=== PATIENT | male | born 1975 | race Caucasian/White ===

== ENCOUNTER 2017-12-22 13:03 | Emergency (ER) | payer BC ==
--- NOTE | 2017-12-22 13:51 | EDPHYS ---
Physician Documentation [facility] Name: Dov Roberson Age: 42 yrs Sex: Male : 1975 Arrival Date: 12/22/2017 Time: 13:03 Bed 24 Private MD: ED Physician Keo Ramsey HPI: 12/22 13:46 This 42 yrs old Male presents to ER via Ambulatory with complaints of Knee gs Pain. 13:46 The patient presents with an injury. The complaints affect the right knee. Context: The gs problem was sustained at home, resulted from HYPERFLEXION RIGHT KNEE SITTING AND GETTING OUT OF BED. Onset: The symptoms/episode began/occurred 2 day(s) ago, and became worse and became persistent. Modifying factors: the symptoms are aggravated by movement, bending knee. Associated signs and symptoms: Pertinent positives: swelling, Pertinent negatives fever, numbness, weakness. Severity of symptoms: At their worst the symptoms were moderate, in the emergency department the symptoms are unchanged. The patient has experienced similar episodes in the past, a few times. Historical: - Allergies: 13:17 No Known Allergies; lk1 - PMHx: 13:17 None; lk1 - PSHx: 13:17 left wrist; right shoulder; Appendectomy; right knee (ACL); lk1 - Immunization history:: Adult Immunizations up to date. - Social history:: Smoking status: Patient/guardian denies using tobacco. - Ebola Screening: : No symptoms or risks identified at this time. ROS: 13:46 All other systems are negative. gs Exam: 13:46 ENT: Nares patent. No nasal discharge, no septal abnormalities noted. Tympanic gs membranes are normal and external auditory canals are clear. Oropharynx with no redness, swelling, or masses, exudates, or evidence of obstruction, uvula midline. Mucous membranes moist. Cardiovascular: Regular rate and rhythm with a normal S1 and S2. No gallops, murmurs, or rubs. Normal PMI, no JVD. No pulse deficits. Respiratory: Lungs have equal breath sounds bilaterally, clear to auscultation and percussion. No rales, rhonchi or wheezes noted. No increased work of breathing, no retractions or nasal flaring. Back: No spinal tenderness. No costovertebral tenderness. Full range of motion. Skin: Warm, dry with normal turgor. Normal color with no rashes, no lesions, and no evidence of cellulitis. 13:46 Constitutional: The patient appears alert, awake. 13:46 Musculoskeletal/extremity: ROM: limited active range of motion due to pain, limited passive range of motion due to pain, Pulses: are normal with no appreciated deficits, Sensation intact. Joints: the right knee displays effusion, painful range of motion, swelling, tenderness. Vital Signs: 13:17 BP 125 / 92; Pulse 83; Resp 16; Temp 97.5(TE); Pulse Ox 98% on R/A; Weight 117.93 kg lk1 (R); Height 6 ft. 3 in. (190.50 cm) (R); Pain 6/10; 13:59 BP 119 / 90; Pulse 80; Resp 17; Pulse Ox 99% on R/A; kr2 13:17 Body Mass Index 32.50 (117.93 kg, 190.50 cm) lk1 MDM: 13:43 Patient medically screened. gs 13:46 Differential diagnosis: tendonitis, LIGAMENT INJURY, CARTILAGE INJURY. PT HAS HX TORN gs MENISCUS SAME KNEE, BENT BACKWARDS NOTICED PAIN SWELLING IMMEDIATELY AFTERWARDS. CHRONIC PROBLEM BUT FLARES DO NOT LAST THIS LONG USUALLY. Data reviewed: vital signs, nurses notes. Administered Medications: 13:58 Drug: [place] 5 mg-325 mg 1 tabs Route: PO; kr2 13:59 Follow up: Response: Medication administered at discharge. kr2 13:59 Drug: Ibuprofen 600 mg Route: PO; kr2 13:59 Follow up: Response: Medication administered at discharge. kr2 Disposition: 12/22/17 13:51 Discharged to Home. Impression: Unspecified internal derangement of knee. - Condition is Stable. - Discharge Instructions: Knee - Cartilage (Meniscus) Injury. - Prescriptions for Naprosyn 500 mg Oral Tablet - take 1 tablet by ORAL route 2 times per day take with food; 20 tablet. Pepcid 20 mg Oral Tablet - take 1 tablet by ORAL route every 12 hours for 10 days; 20 tablet. Tylenol- Codeine #4 300-60 mg Oral Tablet - take 1 tablet by ORAL route every 6 hours As needed; 6 tablet. - Medication Reconciliation Form, Thank You Letter, Antibiotic Education, Prescription Opioid Use form. - Follow up: Shaan Koehler MD; When: 2 - 3 days; Reason: Re-evaluation by your physician. Signatures: Joelle Moise RN RN lk1 Keo Ramsey MD MD gs Naomi Macdonald RN RN kr2 Corrections: (The following items were deleted from the chart) 14:04 13:51 12/22/2017 13:51 Discharged to Home. Impression: Unspecified internal derangement kr2 of knee. Condition is Stable. Forms are Medication Reconciliation Form, Thank You Letter, Antibiotic Education, Prescription Opioid Use. Follow up: Shaan Koehler; When: 2 - 3 days; Reason: Re-evaluation by your physician. gs
--- NOTE | 2017-12-22 13:51 | ER ---
Nurse's Notes [facility] Name: Dov Roberson Age: 42 yrs Sex: Male : 1975 Arrival Date: 12/22/2017 Time: 13:03 Bed 24 Private MD: Diagnosis: Unspecified internal derangement of knee Presentation: 12/22 13:14 Presenting complaint: Patient states: "I have a torn MCL. I have been doing good, lk1 waiting on surgery. Yesterday I started hurting really bad.". Transition of care: patient was not received from another setting of care. Onset of symptoms. Onset of symptoms was December 21, 2017 at 08:00. Risk Assessment: Do you want to hurt yourself or someone else? Patient reports no desire to harm self or others. Initial Sepsis Screen: Does the patient meet any 2 criteria? No. Patient's initial sepsis screen is negative. Does the patient have a suspected source of infection? No. Patient's initial sepsis screen is negative. Care prior to arrival: None. 13:14 Method Of Arrival: Ambulatory lk1 13:14 Acuity: PETE 4 lk1 Historical: - Allergies: 13:17 No Known Allergies; lk1 - PMHx: 13:17 None; lk1 - PSHx: 13:17 left wrist; right shoulder; Appendectomy; right knee (ACL); lk1 - Immunization history:: Adult Immunizations up to date. - Social history:: Smoking status: Patient/guardian denies using tobacco. - Ebola Screening: : No symptoms or risks identified at this time. Screenin:30 Abuse screen: Denies threats or abuse. Denies injuries from another. Nutritional kr2 screening: No deficits noted. Tuberculosis screening: No symptoms or risk factors identified. Fall Risk None identified. Assessment: 13:30 General: Appears in no apparent distress. uncomfortable, well groomed, well developed, kr2 well nourished, Behavior is calm, cooperative, appropriate for age. Pain: Complains of pain in right knee Pain radiates to right leg Pain currently is 6 out of 10 on a pain scale. Quality of pain is described as aching, tender, Is continuous, Alleviated by medications, rest, Aggravated by increased activity, weight bearing. Neuro: Level of Consciousness is awake, alert, obeys commands, Oriented to person, place, time, situation, Appropriate for age. Cardiovascular: Capillary refill < 3 seconds in bilateral fingers Patient's skin is warm and dry. Respiratory: Airway is patent Respiratory effort is even, unlabored, Respiratory pattern is regular, symmetrical. Derm: Skin is intact, is healthy with good turgor, Skin is pink, warm \\T\\ dry. Musculoskeletal: Circulation, motion, and sensation intact. Range of motion: limited in right knee. Vital Signs: 13:17 BP 125 / 92; Pulse 83; Resp 16; Temp 97.5(TE); Pulse Ox 98% on R/A; Weight 117.93 kg lk1 (R); Height 6 ft. 3 in. (190.50 cm) (R); Pain 6/10; 13:59 BP 119 / 90; Pulse 80; Resp 17; Pulse Ox 99% on R/A; kr2 13:17 Body Mass Index 32.50 (117.93 kg, 190.50 cm) lk1 ED Course: 13:03 Patient arrived in ED. as 13:16 Triage completed. lk1 13:19 Arm band placed on right wrist. lk1 13:21 Naomi Macdonald, CALI is Primary Nurse. kr2 13:22 Keo Ramsey MD is Attending Physician. gs 13:30 Patient has correct armband on for positive identification. Bed in low position. Call kr2 light in reach. Side rails up X 1. Pulse ox on. NIBP on. Door closed. Warm blanket given. Head of bed elevated. 13:50 Shaan Koehler MD is Referral Physician. gs 14:03 No provider procedures requiring assistance completed. Patient did not have IV access kr2 during this emergency room visit. Administered Medications: 13:58 Drug: [place] 5 mg-325 mg 1 tabs Route: PO; kr2 13:59 Follow up: Response: Medication administered at discharge. kr2 13:59 Drug: Ibuprofen 600 mg Route: PO; kr2 13:59 Follow up: Response: Medication administered at discharge. kr2 Outcome: 13:51 Discharge ordered by . gs 14:03 Discharged to home ambulatory, with family. kr2 14:03 Condition: good 14:03 Discharge instructions given to patient, family, Instructed on discharge instructions, follow up and referral plans. medication usage, Demonstrated understanding of instructions, follow-up care, medications, Prescriptions given X 3. 14:04 Patient left the ED. kr2 Signatures: Rebekah Lai Leah, RN RN lk1 Keo Ramsey MD MD Naomi Macdonald RN RN kr2
[2017-12-22] MEDS ORDERED: HYDROCODONE/APAP 5/325 MG TAB ONE (13:59)
[2017-12-22] MEDS ORDERED: IBUPROFEN 200 MG TAB PO ONE (13:59)
== END 2017-12-22 14:04 | disposition home or self-care (01) ==
LOC: ER 13:03
DX: M23.91 Unspecified internal derangement of right knee (principal); X58.XXXA Exposure to other specified factors, initial encounter; Y93.89 Activity, other specified; Y92.003 Bedroom of unspecified non-institutional (private) residence as the place of occurrence of the external cause
CPT/HCPCS: 99283